=== PATIENT | female | born 1960 | race Caucasian/White ===

== ENCOUNTER 2020-09-19 13:24 | Emergency (ER) | payer OTHER ==
[2020-09-19 14:43] LABS: BASOPHIL 0.6 % (0-2); EOSINOPHIL 1.1 % (0-5); HCT 41.2 % (37.0-47.0); HGB 13.5 g/dl (12.5-16.0); LYMPHOCYTE 22.8 % (15-48); MCH 30.6 pg (25.0-31.0); MCHC 32.8 g/dL (32.0-36.0); MCV 93.4 fL (78.0-100.0); MONOCYTE 6.5 % (0-12); MPV 12.1 fL (6.0-9.5); NEUTROPHIL 68.3 % (41-80); NRBC 0; PLT 204 K/uL (150-400); RBC 4.41 M/uL (4.20-5.40); RDW 12.7 % (11.5-14.0); WBC 11.9 K/uL (4.0-10.5)
[2020-09-19 14:47] LABS: BUN/CREAT RATIO (CALC) 16.5 RATIO; CREATININE 0.85 mg/dL (0.51-0.95); POTASSIUM 3.6 mmol/L (3.5-5.1)
== END 2020-09-19 18:00 | disposition other institution (70) ==
LOC: FER 13:24
PROVIDERS: Emergency Medicine Emergency Medical Services
DX: S42.441A Displaced fracture (avulsion) of medial epicondyle of right humerus, initial encounter for closed fracture (principal); W55.12XA Struck by horse, initial encounter
CPT/HCPCS: 36415; 73060; 73090; 80048; 85025; 96365; 96375; 96376; J0690; J2270; J2405